=== PATIENT | female | born 1950 | race Caucasian/White ===

== ENCOUNTER 2023-04-14 06:26 | Observation (INO) ==
--- NOTE | 2023-03-20 15:23 | PAT Medication Instructions ---
Medication Instructions Date of Service March 20, 2023 Home Medications Medication Instructions Recorded Jose Klein #1 ea 01/23/23 escitalopram oxalate 10 mg tablet (Lexapro) 15 mg PO QAM Take morning of surgery With a small sip of water, OTHERWISE NOTHING TO EAT OR DRINK AFTER MIDNIGHT: escitalopram oxalate 10 mg tablet (Lexapro) 15 mg PO QAM Other Notes If you have any questions please call us at [phone] or [phone] or [phone] or [phone]
--- NOTE | 2023-03-30 11:51 | Anesthesiology Consultation ---
Date of Service March 30, 2023 Assessment & Plan (1) Encounter for pre-operative examination: Chart Review Chart Review: Acceptable Risk for Surgery and Patient seen in Pre Admission Testing Pt currently scheduled as 23 hours observation. If surgeon decides to change patient to Same Day Joint, patient would be acceptable risk for TKA, pending patient is motivated, has good support and surgeon's office completes [facility] Day [facility] Program preop requirements. Per PAT appt on 03/30/23, patient denies any recent travel or large group activities. Pt is vaccinated for Covid. Will leave to surgeon's discretion if preop Covid testing needed. Educated on importance of using Covid precautions one week prior to surgery Teaching & Discussion Pre-Anesthesia Teaching/Discussion Notes: Instructed NPO after midnight before surgery,except medications with 15 cc of water. Medication instructions provided according to the PAT guidelines. History Surgery Operation Date: 04/14/23 10:40 Proposed Procedures p Left Total Knee Arthroplasty - Romeo Skelton MD Height/Weight Height: 5 ft 8 in Weight: 107.3 kg Allergies Allergy/AdvReac Type Severity Reaction Status Date / Time codeine AdvReac Mild Vomiting Verified 03/19/23 15:04 Medications Home Medications Medication Instructions Recorded Confirmed Last Taken escitalopram oxalate 10 mg tablet 15 mg PO QAM 12/01/19 03/19/23 12/26/19 08:00 (Lexapro) Wheeled Walker #1 ea 01/23/23 01/23/23 Unknown Past Medical History Medical History Anxiety History of COVID-19 10/2022- flu like symptoms, cough; resolved Hx of basal cell carcinoma s/p excision Nausea and vomiting after administration of anesthetic agent Osteoarthritis Exercise / Class Metabolic Activity II 4-5 Yardwork/Stairs/Walk up hill (one flight of stairs - no chest pain or SOB ) Past Family History Family History Father Family history of diabetes mellitus Past Surgical History Surgical History H/O parathyroidectomy History of colonoscopy History of foot surgery Left History of hysterectomy History of inguinal hernia repair History of left cataract extraction History of tooth extraction History of umbilical hernia repair Hx of basal cell carcinoma excision Hx of LASIK Hx of right cataract extraction Past Anesthesia History No Hx of Anesthesia Complications (with exception to PONV ) and No Family Hx of Anesthesia Complications History of PONV History of PONV (improved with IV anti-nausea medications - no issues with parathyroidectomy in early ) and Hx of Motion Sickness (mild) Social History Smoking Status: Never smoker Do You Dip or Chew Tobacco: No Hx Alcohol Use: No Hx Substance Use: No substance use type: does not use Review of Systems Hx of snoring - no hx of sleep study Patient denies chest pain, shortness of breath, dyspnea on exertion, reflux, cough, wheezing, palpitations. No hx of seizures, stroke, VA. No hx of blood clots or blood transfusions Physical Exam Vital Signs VITALS BP 142/81 P 69 TEMP 98.0 SP02 97% RESP 16 Constitutional no acute distress ENMT Mouth: no TMJ clicking Thyromental Distance: > or= 3.5 Finger Breadths (3.5) Mallampati Class: III Missing molars Neck + limited neck extension (minimal) Respiratory normal respiratory effort; no respiratory distress Auscultation: lungs clear to auscultation bilaterally; no wheezes Cardiovascular Rate/Rhythm: regular rate and regular rhythm Heart Sounds: no murmur Vessels: no carotid bruit Musculoskeletal Spine: no pain with cervical ROM Extremities: extremities normal to inspection Psychiatric Orientation: alert Lab Results Anesthesia Preop Results Results Anesthesia Widget: WBC 5.41 K/ul (4.8-10.8) 03/30/23 Hgb 13.6 g/dl (12.0-16.0) 03/30/23 Hct 40.2 % (37.0-47.0) 03/30/23 Plt 232 K/uL (130-400) 03/30/23 Na 138 mmol/L (136-145) 03/30/23 K 3.9 mmol/L (3.5-5.1) 03/30/23 Cl 104 mmol/L (98-107) 03/30/23 CO2 30 mmol/L (21-32) 03/30/23 BUN 15 mg/dl (6-23) 03/30/23 Creat 0.72 mg/dl (0.6-1.2) 03/30/23 Glucose Level 117 mg/dl (70-99(Fasting)) H 03/30/23 PT 11.1 Seconds (9.0-12.0) 03/30/23 PTT 28.2 Seconds (21.0-31.0) 03/30/23 INR 1.0 (0.9-1.1) 03/30/23 Blood Type A Positive 03/30/23 Antibody Screen NEGATIVE 03/30/23 Testing Electrocardiogram Date: 03/30/23 Findings: + NSR @ (65bpm ) Normal EKG per cardio Chest X-Ray Date: 03/30/23 Findings: + NAD FINDINGS: Cardiomediastinal and hilar silhouettes are unchanged. Atherosclerosis of the aorta. Stable mild right hemidiaphragmatic elevation. No pneumothorax, pleural effusion, airspace consolidation or pulmonary edema. Degenerative changes of the shoulders and spine COVID-19 Risk Screen Screening Information COVID-19 Screen Date: 03/30/23 Exposure 21 Days Family/Household +COVID Last 21 Days: No Exposure 10 Days Any COVID Exposure Last 10 Days: No Symptoms Last 10 Days Experienced COVID Sx Last 10 Days: No + COVID 0-90 Days COVID + in Last 0-90 Days: No Risk Plan COVID Risk Plan: No Risk Identified Patient Education COVID Preop Screening Education Complete: Yes
--- NOTE | 2023-04-11 13:14 | History and Physical Report ---
CHIEF COMPLAINT: Left knee pain. HISTORY OF PRESENT ILLNESS: A 72-year-old female who presents for surgical treatment of her left kne e. She has a 7-year history of increasing left knee pain and discomfort, it has gradually gotten wor se over time. She has been through an extensive conservative care provided by [facility] including multiple injections, which have become less successful over time. She does not walk for e xercise due to pain and discomfort and stiffness in her knee. 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 PAST MEDICAL HISTORY: 1. Anxiety. 2. Osteoarthritis. 3. Parathyroid resection. PAST SURGICAL HISTORY: Includes: 1. Parathyroid surgery. 2. Colonoscopy. 3. Foot surgery. 4. Hysterectomy. 5. Hernia repair. 6. Cataract surgery. 7. Oral surgery. 8. Umbilical hernia repair. 9. LASIK surgery. SOCIAL HISTORY: A 72-year-old female. She is a retired teacher. Does not smoke or drink. FAMILY HISTORY: Noncontributory. REVIEW OF SYSTEMS: Negative for diabetes, neurologic problem, vascular problems or bleeding disorder s. No chest pain or shortness of breath. No history of DVT or PE. PHYSICAL EXAMINATION: GENERAL: Shows a pleasant, elderly female. Looks younger than her stated age. HEENT: Benign. NECK: Supple. No lymphadenopathy. LUNGS: Clear to auscultation. HEART: Regular rate and rhythm. ABDOMEN: Soft, nontender, nondistended. EXTREMITIES: Grossly neurovascularly intact except as follows: Examination of the left knee revealed patient walks with a slightly antalgic gait. She has slight va zee alignment to her knee. Moderate soft tissue envelope. Tender over the medial joint line. Range of motion about 10 degrees short of full extension, to 115 degrees of flexion. No instability. No pain with hip motion. X-RAYS: Four views left knee from previously reviewed. It shows advanced left knee DJD. She has co mplete loss of her medial joint space. She has got osteophytes medially. A little bit of tibial fem oral subluxation. 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 She has failed conservative treatment and would like to have her left knee replaced. PLAN: We will take her to the operating room and do left total knee replacement. The risks and bene fits of this procedure were explained to the patient and include but not limited to DVT, PE, , i nfection, neurological injury, vascular injury, bleeding problem, pain, limited range of motion, stif fness, failure to proceed, failure to relieve all symptoms, etc. The patient understands and desires to proceed. Informed consent was obtained. As far as discharge planning, to be discharged to home with home health. Plan to stay in the hospital overnight. Job ID: [id number]
[~2023-04-14 06:26] MED LIST: ACETAMINOPHEN 500 MG TAB PO SCH; BUPIVACAINE LIPOSOME/PF 266 MG, BUPIVACAINE/EPINEPHRINE 50 ML, SODIUM CHLORIDE 0.9% PF ... INFIL SCH; CeleBREX 200 MG CAP PO SCH; FAMOTIDINE 20 MG TAB PO SCH; LR 500ML BOLUS, THEN 15ML/HR IV SCH; LR 60ML/HR IV SCH; METOCLOPRAMIDE HCL 10 MG TABLET PO SCH; TRANEXAMIC ACID 1,000 MG **IV Intra-op IV SCH; ceFAZolin 2000MG 2,000 MG/15 ML SYR IV SCH; dexAMETHasone**PF** 10 MG/ML VIAL IV SCH
[2023-04-14] MEDS ORDERED: BUPIVACAINE 0.25% PF 30 ML VIAL ONE (06:33)
[2023-04-14] MEDS ORDERED: BUPIVACAINE 0.5 % 5 MG/1 ML PF 10ML VIAL ONE (06:33)
--- NOTE | 2023-04-14 06:54 | History & Physical Bridge Note ---
Date of Service April 14, 2023 History & Physical Bridge Note I have examined the patient, reviewed the History & Physical and in the interval since the performance of the History & Physical I have noted the following changes of clinical significance: no changes noted
[2023-04-14] MEDS ORDERED: ATROPINE SULFATE 0.1 MG/ML 10ML SYR IV PRN (07:29)
[2023-04-14] MEDS ORDERED: ONDANSETRON INJ 2 MG/ML 2 ML VIAL IV PRN ×2 (07:29→12:11)
[2023-04-14] MEDS ORDERED: ePHEDrine sulfate 50 MG/ML AMP IV PRN (07:29)
[2023-04-14] MEDS ORDERED: fentaNYL citrate PF 100 MCG/2 ML VIAL IV PRN (07:29)
[2023-04-14] MEDS ORDERED: LIDOCAINE 2% 2 ML VIAL/AMP(20MG/ML) INFIL ONE (07:34)
[2023-04-14] MEDS ORDERED: MIDAZOLAM HCL 1 MG/ML 2ML VIAL ONE ×2 (07:35→09:37)
[2023-04-14] MEDS ORDERED: PROPOFOL IV EMULSION 10 MG/ML 20 ML VIAL IV ONE (07:36)
[2023-04-14] MEDS ORDERED: BUPIVACAINE/EPINEPHRINE 0.25% 1:200,000 30 ML VIAL ONE (08:28)
[2023-04-14] MEDS ORDERED: SODIUM CHLORIDE 0.9% PF 50 ML VIAL ONE (08:28)
[2023-04-14] MEDS ORDERED: BUPIVACAINE LIPOSOME 1.3% 266 MG/20 ML VIAL ONE (08:29)
[2023-04-14] MEDS ORDERED: DEXAMETHASONE SOD INJ 4 MG/ML VIAL ONE (09:14)
--- NOTE | 2023-04-14 10:38 | Operative Report ---
PG Post Operative Report Pre & Post Diagnosis Operation Date: 04/14/23 08:40 Pre-Op Diagnosis: Left knee degenerative joint disease. Post-Op Diagnosis: Left knee degenerative joint disease. I identified the patient and participated in the time-out.: Yes Procedure Operation Date: 04/14/23 08:40 Actual Procedures p Left Total Knee Arthroplasty(Left) - Romeo Skelton MD Surgeon Romeo Skelton MD Room Attendant Willian Montgomery PA-C Estimated Blood Loss 50 Findings Consistent with Post-Op Diagnosis Operative findings were advanced left knee tricompartment DJD. She had extensive grade 4 [id number]-[id number] disease in all 3 compartments most severe in the medial side. She had osteophytes posteriorly. Moderate-sized joint effusion. Specimens Left knee sent for pathology Anesthesia Type Spinal MAC Complications none Disposition Accompanied Patient To Recovery: No Indications Patient 72-year-old female is had a several year history of increasing left knee pain discomfort. She been through extensive conservative treatment which became less successful over time. She elected proceed with total knee arthroplasty. Description of Procedure Operative implants consist of: 1 Biomet Vanguard size 65 left posterior stabilized femoral component. 2. Biomet size 67 tibial tray. 3. 14 mm posterior stabilized polyethylene insert. 4. 31 x 8 all poly patella. The patient was taken the operating, identified, and placed on the operating table supine position protectors were properly padded. IV antibiotics tried by anesthesia team. Spinal anesthetic and an abductor canal block had provided in the holding area. Zhao catheter was placed in sterile fashion for left thigh turn was then placed in the left lower extremity then prepped and draped in usual sterile fashion. The left leg was elevated exsanguinated with use of an Esmarch and the tourniquet was placed at 300 mmHg. An anterior posterior left knee was then performed to longitudinal incision centered over the patella. Sharp dissection was carried through subcutaneous tissue down the extensor mechanism. Medial parapatellar arthrotomy incision was made. Some subperiosteal dissection was carried out medially. The fat pad was resected from Neath patella tendon. Lateral patellofemoral ligament was released. Patella subluxated laterally and the knee was flexed. The osteophytes taken off distal femur. The ACL and PCL were then released from distal femur the tibia subluxated anteriorly. The external tibial alignment jig was then placed in the interface the tibia and adjusted 14 mm medially. The proximal tibial cut was made remove about a millimeter bone from the most deficient aspect medial tibial plateau. The tibia was sized to a size 67. We did take some osteophytes off medial and posterior medially. Attention drawn the femur. The distal femur stem with a sharp drop with intramedullary canal was suction. A left 5 degree valgus cutting guide was placed. Distal femoral cutting block was pinned in place. Distal femoral cut was made to take an additional 3 mm of bone off distal femur. The femur was then sized to a size 65. We did downsize this slightly. The AP cutting block was pinned parallel to the epicondylar axis which was 5 degrees of external rotation. Anterior cut, anterior chamfer, posterior cut, posterior chamfer cuts were made. The box cutting guide was placed in just slight lateral and the box cut was made. The knee was flexed. The remnants of the medial and lateral menisci were excised. The osteophytes taken off the posterior aspect the femur. A trial femoral component was placed. Tibial tray was pinned in maximum external rotation and the drill and stem punch were used to create the defect in proximal tibia for the tibial tray. The knee was then trialed and 14 mm insert fit most appropriately. Attention drawn the patella. The patella was cleaned of all soft tissues. Patella thickness measured by 18 mm in thickness and was cut down to 12. Was sized to a size 31 patella. The lug holes were drilled for the 31 patella. The lateral osteophytes removed. Patella button was placed. Knee was taken through range of motion patella t racked nicely with no thumbs test. Attention drawn to placing permanent components. All trial components were removed. Bone plug was placed in the distal femur limit blood loss. Double batch Palacos G cement was mixed. Biomet Vanguard size 65 left posterior stabilized femoral component, size 67 tibial tray, a 14 mm posterior stabilized polyethylene insert, and a 31 x 8 all Paller patella then cemented in place. Knee was brought out in full extension till cement hardened. Final cement check was then performed. The pericapsular tissues were injected with total 100 cc of combination of 20 of Exparel, 30 cc normal saline, 50 cc of quarter percent Marcaine with epinephrine. Patient did receive 1 g tranexamic acid. The tourniquet was then let down for final tourniquet time of 56 minutes. Hemostasis assured use electrocautery. The extensor mechanism then closed with combination 1 PDS suture and 1 Vicryl suture in a [id number] fashion. Extensor Maxon checked found to be intact and the subcutaneous tissues then closed with 2 Dexon suture in a buried interrupted fashion skin was closed skin kaelyn. Leg was then cleaned and dried and sterile dressing was Xeroform, 4 x 4's, sterile cast padding, Bert bandage were applied. Patient then transferred to the recovery room in stable condition. Patient tolerated the procedure well and there were no complications. Willian Montgomery, my physician kitchen assistant, was present for the entire procedure. His assistance was essential and required for appropriate patient positioning, prepping and draping, surgical exposure, performing the technical details of the operation, placement the implants, closure of the wound, and placement of the sterile bandage. I attest to the content of the Intraoperative Record and any orders documented therein. Any exceptions are noted below.
--- NOTE | 2023-04-14 11:45 | XRay Report ---
TWO VIEWS LEFT KNEE CLINICAL HISTORY: Postoperative examination. FINDINGS: AP and crosstable lateral portable views of the left knee are obtained. A left knee arthrop lasty is in near anatomic alignment. There has been undersurface remodeling of the patella. No acute fracture is seen. There are expected postoperative changes around the knee including skin clips, soft tissue edema, and subcutaneous gas. IMPRESSION: Expected postoperative changes status post left knee arthroplasty. No acute fracture is s een. ACT 112: Negative or not required by law. Electronically signed by: Jose A Perea M.D. 04/14/2023 11:43 AM
[2023-04-14] MEDS ORDERED: HYDROmorphone INJ 0.5 MG/0.5 ML SYR IV PRN (12:11)
[2023-04-14] MEDS ORDERED: ALUMINUM/MAGNESIUM SUSP 30 ML UDC PO PRN (12:11)
[2023-04-14] MEDS ORDERED: SODIUM CHLORIDE 0.9% 1000ML 1,000 ML IV SCH (12:11)
[2023-04-14] MEDS ORDERED: oxyCODONE HCL IR 5 MG TAB (IMMEDIATE RELEASE) PO PRN (12:11)
[2023-04-14] MEDS ORDERED: METOCLOPRAMIDE HCL INJ 5 MG/ML 2 ML VIAL IV PRN (12:11)
[2023-04-14] MEDS ORDERED: NALOXONE HCL 0.4 MG/1 ML VIAL/CARP IV PRN (12:11)
[2023-04-14] MEDS ORDERED: MAGNESIUM HYDROXIDE SUSP 30 ML UDC PO PRN (12:11)
[2023-04-14] MEDS ORDERED: bisacodyL 10 MG SUPP PR PRN (12:11)
--- NOTE | 2023-04-14 13:57 | Anesthesiology Progress Note ---
Date of Service April 14, 2023 Anesthesia Post Procedure Vital Signs Vital Signs: Temp Pulse Pulse Pulse Resp BP Pulse Ox 04/14/23 13:31 36.8 C 92 H 16 147/82 H 93 04/14/23 12:35 87 16 155/77 H 94 04/14/23 11:30 36.5 C 76 16 154/77 H 92 04/14/23 12:07 37.2 C 78 16 149/73 H 94 04/14/23 11:15 79 16 160/64 H 94 04/14/23 11:05 36.5 C 77 18 157/72 H 92 04/14/23 10:55 79 14 158/69 H 93 04/14/23 10:45 77 16 143/64 H 98 04/14/23 10:36 36.3 C L 85 12 145/65 H 96 04/14/23 06:52 36.6 C 84 20 162/96 H 95 O2 Del Method O2 Flow Rate 04/14/23 13:31 Room Air 04/14/23 12:35 Room Air 04/14/23 11:30 Room Air 04/14/23 12:07 Room Air 04/14/23 11:15 Room Air 04/14/23 11:05 Room Air 04/14/23 10:55 Room Air 04/14/23 10:45 Room Air 04/14/23 10:36 Oxymask 6 04/14/23 06:52 Room Air Pain Intensity Left Knee: Pain Intensity: 0 Transfer of Care Handoff Completed per policy Notes Mental Status: alert / awake / arousable and participated in evaluation Patient Amnestic to Procedure: Yes Nausea / Vomiting: adequately controlled Pain: adequately controlled Airway Patency, RR, SpO2: stable & adequate BP & HR: stable & adequate Hydration State: stable & adequate Neuraxial Anesthesia: was administered and sensory block is resolving Anesthetic Complications: no major complications apparent and Pt Satisfied with anesthetic care
[2023-04-14] MEDS: ACETAMINOPHEN 500 MG TAB PO SCH ×2 (14:03→20:13)
[2023-04-14] MEDS: KETOROLAC TROMETHAMINE 15 MG/ML VIAL IV SCH ×3 (14:05→23:53)
[2023-04-14] MEDS ORDERED: TRANEXAMIC ACID / 0.7% NACL 1,000 MG/100 ML BAG IV SCH (16:45)
[2023-04-14] MEDS: ceFAZolin 2000MG 2,000 MG/15 ML SYR IV SCH ×2 (16:55→23:53)
[2023-04-14] MEDS: ASCORBIC ACID 500 MG TAB PO SCH (17:07)
[2023-04-14] MEDS: SENNA 8.6 MG TAB PO SCH (20:11)
[2023-04-14] MEDS: DOCUSATE SODIUM 100 MG CAP PO SCH (20:11)
[2023-04-14] MEDS: ASPIRIN 81 MG ECTAB PO SCH (20:12)
[2023-04-14] MEDS ORDERED: SENNA 8.6 MG TAB PO SCH (21:00)
[2023-04-14] MEDS ORDERED: diphenhydrAMINE Capsule 25 MG CAP PO ONE (22:22)
[2023-04-15] MEDS: KETOROLAC TROMETHAMINE 15 MG/ML VIAL IV SCH ×2 (05:39→11:01)
[2023-04-15] MEDS: DOCUSATE SODIUM 100 MG CAP PO SCH (07:45)
[2023-04-15] MEDS: ASCORBIC ACID 500 MG TAB PO SCH (07:45)
[2023-04-15] MEDS: ASPIRIN 81 MG ECTAB PO SCH (07:45)
[2023-04-15] MEDS: ACETAMINOPHEN 500 MG TAB PO SCH ×2 (07:45→13:10)
[2023-04-15] MEDS: SENNA 8.6 MG TAB PO SCH (07:46)
[2023-04-15] MEDS ORDERED: dexAMETHasone 10 MG in SYRINGE 0 ML IV SCH (08:00)
[2023-04-15] MEDS ORDERED: MULTIVITAMIN TAB PO SCH (09:00)
[2023-04-15] MEDS ORDERED: ESCITALOPRAM OXALATE 10 MG TAB PO SCH (09:00)
[2023-04-15 09:35] LABS: Hematocrit (blood only) 32.4 % (37.0-47.0); Hemoglobin 11.2 g/dl (12.0-16.0); Mean Corpuscular Hemoglobin 30.9 pg (25.0-34.0); Mean Corpuscular Hgb Conc 34.6 g/dL (32.0-36.0); Mean Corpuscular Volume 89.3 fL (80.0-100.0); Mean Platelet Volume 10.4 fL (9.4-12.4); Platelet Count 239 K/uL (130-400); RDW Coefficient of Variation 12.3 % (11.5-14.5); RDW Standard Deviation 40.2 fL (36.4-46.3); Red Blood Count 3.63 M/uL (4.20-5.40); White Blood Count 13.09 K/ul (4.8-10.8)
[2023-04-15 10:06] LABS: BUN Creatinine Ratio 28.4 (10-20); Calcium 9.1 mg/dl (8.6-10.3); Creatinine Clr Calc Pharmacy 86.1 ml/min; Est GFR (African American) 92.5 ml/min; Est GFR (Non-African American) 79.8 ml/min; Potassium 4.2 mmol/L (3.5-5.1)
--- NOTE | 2023-04-15 22:36 | Progress Notes ---
SUBJECTIVE: A 72-year-old female postoperative day 1 from a left knee replacement. She reports no p ain yet. Therapy went good. No chest pain or shortness of breath. She is hoping to go home. OBJECTIVE: VITAL SIGNS: Temperature 36.5. Vital signs are stable. GENERAL: This is a pleasant, elderly female. She is lying in bed, looks pretty comfortable. She is talking on the phone when I went into her room this afternoon. LUNGS: Clear to auscultation. HEART: Regular rate and rhythm. ABDOMEN: Soft, nontender, nondistended. EXTREMITIES: Grossly neurovascularly intact except as follows. Examination of the left leg reveals the dressing to be clean, dry and intact. Leg is well aligned. She can dorsiflex and plantarflex her foot appropriately. She is neurologically intact. LABORATORY DATA: Hemoglobin 11.2. Hematocrit 34. Electrolytes are stable. ASSESSMENT: A 72-year-old female postoperative day 1 from left knee replacement, doing well. Pain i s controlled. Therapy went well. She is hoping to go home. PLAN: 1. DVT prophylaxis includes thigh-high TEDs, SCDs, and aspirin twice a day. 2. PT/OT, weightbear as tolerated. Left total knee protocol. 3. Pain control, doing okay with current pain regimen. Actually having very little pain. 4. Disposition: Plan to discharge to home with some home health today. Job ID: [id number]
--- NOTE | 2023-04-21 11:08 | Discharge Summary ---
Date of Service April 21, 2023 Discharge Data Procedures Performed Operation Date: 04/14/23 08:40 Actual Procedures p Left Total Knee Arthroplasty(Left) - Romeo Skelton MD Hospital Course (1) Status post total left knee replacement: This is a 73 year old patient admitted on 04/14/23 and underwent total knee arthroplasty. She tolerated the procedure well and there were no complications. Transferred to the PACU post op and later to the orthopedic floor for further care. She was given ancef for antibiotic prophylaxis. She was also given REJI stockings, SCDs, and aspirin for DVT prophylaxis. Hemoglobin, hematocrit, and vital signs were monitored during her hospital stay and remained stable. Did not require any blood transfusions. There were no complications during her hospital stay. By post op day #1 the patient was tolerating a lactose intolerant diet, pain was reasonably controlled with oral pain medicine, and she was participating in physical therapy. On post op day #1 the patient was discharged home and set up with home health care. She was given printed discharge instructions including prescriptions for extra strength tylenol, aspirin, ketorolac, zofran, oxycodone, and senokot. Continue physical therapy, weight bearing as tolerated. Continue REJI stockings. Follow up approximately 2 weeks post op or sooner if there are problems or concerns. Coding Level of Care Code None Diagnoses Status post total left knee replacement Z96.652
== END 2023-04-15 16:40 | disposition home health service (06) ==
LOC: ASU 06:26 → 3E 06:26